=== PATIENT | male | born 1955 | race Caucasian/White ===

== ENCOUNTER → 2020-11-03 13:51 | Outpatient (CLI) | payer BC, SELFPAY ==
[2020-10-21 15:59] VITALS: BMI 29.2
--- NOTE | 2020-11-03 13:53 | ECHOD_ITS ---
Reason For Study: CHF Procedure This was a 2D Doppler, Color Flow transthoracic echocardiogram. The exam was of adequate technical quality. Exam performed in department. Left Ventricle Normal LV size. Left ventricular systolic function is lower limits of normal. The estimated ejection fraction is 50 %. Diastolic function is indeterminate. No regional wall motion abnormalities noted. Right Ventricle Normal RV size. Normal systolic function. Atria The left atrium is mildly enlarged. Normal right atrium. No doppler evidence for ASD. Mitral Valve There is mild mitral annular calcification. Extension the mitral annular calcification on the base of the posterior mitral valve leaflet. Mild focal mitral valve calcification of the anterior leaflet. Trivial mitral valve insufficiency. Tricuspid Valve Normal tricuspid valve. Trivial tricuspid valve insufficiency. Unable to estimate RV systolic pressure due to insufficient tricuspid regurgitant envelope. Aortic Valve Trisinus/trileaflet aortic valve. Mild diffuse aortic valve thickening. Severe diffuse aortic valve calcification. Severe aortic stenosis. Mild (1+) eccentric aortic valve insufficiency. Pulmonic Valve The pulmonic valve is not well visualized. Trivial pulmonic valve insufficiency. Great Vessels Normal sized aortic root. Pericardium/Pleural No pericardial effusion. Epicardial fat. MMode/2D Measurements & Calculations LVIDd: 5.6 cm IVSd: 1.2 cm LVOT diam: 2.1 cm LVIDs: 4.2 cm LVPWd: 1.3 cm LVOT area: 3.5 cm2 RVDd: 3.6 cm FS: 25.8 % Ao root diam: 3.4 cm LAV(MOD-bp): 52.9 ml LVAd ap4: 37.6 cm2 ACS: 0.45 cm LAV(MOD-bp) Indexed: 24.8 ml/m2 LVLd ap4: 8.1 cm LAV(MOD-sp2): 42.5 ml EDV(MOD-sp4): 147.2 ml LAV(MOD-sp4): 62.9 ml EDV(sp4-el): 148.8 ml LVAs ap4: 24.9 cm2 LVLs ap4: 7.2 cm ESV(MOD-sp4): 71.9 ml ESV(sp4-el): 72.7 ml EF(MOD-sp4): 51.1 % EF(sp4-el): 51.2 % LVAd ap2: 30.2 cm2 SV(MOD-sp4): 75.3 ml SV(MOD-sp2): 52.6 ml LVLd ap2: 8.1 cm EDV(MOD-sp2): 92.5 ml EDV(sp2-el): 95.7 ml LVAs ap2: 18.4 cm2 LVLs ap2: 7.2 cm ESV(MOD-sp2): 39.8 ml ESV(sp2-el): 39.7 ml EF(MOD-sp2): 56.9 % SV(sp4-el): 76.1 ml LA dimension(2D): 4.6 cm LA A4 area: 19.5 cm2 RA A4 area: 16.3 cm2 Doppler Measurements & Calculations MV E max lion: 70.6 cm/sec Lat Peak E' Lion: 5.4 cm/sec Med Peak E' Lion: 3.7 cm/sec MV A max lion: 105.7 cm/sec E/E' lat: 13.0 E/E' med: 18.9 MV E/A: 0.67 Ao V2 max: 408.8 cm/sec AI max lion: 476.0 cm/sec LV V1 max: 111.4 cm/sec Ao max P.9 mmHg AI max P.7 mmHg LV V1 max P.0 mmHg Ao V2 mean: 306.9 cm/sec AI dec slope: 284.5 cm/sec2 LV V1 mean P.0 mmHg Ao mean P.3 mmHg AI P1/2t: 490.2 msec LV V1 mean: 83.3 cm/sec Ao V2 VTI: 93.1 cm LV V1 VTI: 25.5 cm CRIS(I,D): 0.96 cm2 CRIS(V,D): 0.95 cm2 SV(LVOT): 89.0 ml PA V2 max: 109.8 cm/sec PI end-d lion: 107.9 cm/sec ECHO/Echo Complete Interpretation Summary Left ventricular systolic function is lower limits of normal. The estimated ejection fraction is 50 %. The left atrium is mildly enlarged. There is mild mitral annular calcification. Extension the mitral annular calcification on the base of the posterior mitral valve leaflet. Mild focal mitral valve calcification of the anterior leaflet. Trivial mitral valve insufficiency. Trivial tricuspid valve insufficiency. Severe aortic stenosis. Mild (1+) eccentric aortic valve insufficiency. Trivial pulmonic valve insufficiency. Epicardial fat. Unable to estimate RV systolic pressure due to insufficient tricuspid regurgita nt envelope. Diastolic function is indeterminate. Ordering Physician: Jamin Pradhan Referring Physician: Trent Chandra Performed By: Loida Jones, JIGNESH, RVT
== END ==
PROVIDERS: PCP Family Medicine; Referring Provider Internal Medicine Cardiovascular Disease; Visit Provider Internal Medicine Cardiovascular Disease
DX: I35.0 Nonrheumatic aortic (valve) stenosis (principal); I11.0 Hypertensive heart disease with heart failure; I50.22 Chronic systolic (congestive) heart failure; I25.10 Atherosclerotic heart disease of native coronary artery without angina pectoris; I42.8 Other cardiomyopathies
CPT/HCPCS: 93306

== ENCOUNTER 2021-06-25 07:15 | Outpatient (CLI) | payer OTHER, SELFPAY ==
[2021-06-25 08:12] LABS: AST(SGOT) 19 U/L (15-37); Alanine Aminotransfer ALT/SGPT 32 U/L (16-61); Albumin, Serum 3.9 g/dL (3.2-5.0); Alkaline Phosphatase 56 U/L (45-117); Bilirubin, Direct 0.09 mg/dL (0.00-0.30); Cholesterol 156 mg/dL (200); Globulin 3.2 g/dL (2.2-4.2); High Density Lipoprotein 39 mg/dL; Protein, Total 7.1 g/dL (6.4-8.2); Triglycerides 104 mg/dL; Very Low Density Lipoprotein 21 mg/dL (5-40)
== END 2021-06-25 23:59 | disposition home or self-care (01) ==
PROVIDERS: PCP Family Medicine; Referring Provider Nurse Practitioner Family; Visit Provider Nurse Practitioner Family
DX: I25.10 Atherosclerotic heart disease of native coronary artery without angina pectoris (principal)
CPT/HCPCS: 36415; 80061; 80076

== ENCOUNTER → 2022-02-11 | Outpatient (CLI) | payer BC, SELFPAY ==
[2022-02-11 08:38] LABS: AST(SGOT) 22 U/L (15-37); Alanine Aminotransfer ALT/SGPT 40 U/L (16-61); Alkaline Phosphatase 63 U/L (45-117); Anion Gap 4 (5-15); BUN 21 mg/dL (7-18); BUN/Creat Ratio 16.4 RATIO (10-20); Bilirubin, Direct 0.15 mg/dL (0.00-0.30); Calcium,Total 9.5 mg/dL (8.5-10.1); Chloride 106 mmol/L (98-107); Cholesterol 158 mg/dL (200); Creatinine, Serum 1.28 mg/dL (0.70-1.30); EST Glomerular Filtration Rate 60 mL/min (>60); Est Glom Filt Rate - Afr Amer 73 mL/min (>60); Globulin 3.6 g/dL (2.2-4.2); Glucose 100 mg/dL (74-106); High Density Lipoprotein 38 mg/dL; Potassium 4.6 mmol/L (3.5-5.1); Protein, Total 7.6 g/dL (6.4-8.2); Sodium Level 140 mmol/L (136-145); Triglycerides 167 mg/dL; Very Low Density Lipoprotein 33 mg/dL (5-40)
== END | disposition home or self-care (01) ==
LOC: LAB 07:01
PROVIDERS: PCP Family Medicine; Referring Provider Nurse Practitioner Family; Visit Provider Nurse Practitioner Family
DX: I11.0 Hypertensive heart disease with heart failure (principal); I50.22 Chronic systolic (congestive) heart failure
CPT/HCPCS: 36415; 80048; 80061; 80076

== ENCOUNTER → 2023-09-07 | Outpatient (CLI) | payer OTHER, SELFPAY ==
[2023-09-07 07:38] LABS: ALB/GLOB Ratio 1.3 RATIO (0.9-2.4); AST(SGOT) 42 U/L (15-37); Alanine Aminotransfer ALT/SGPT 54 U/L (16-61); Albumin, Serum 4.1 g/dL (3.2-5.0); Alkaline Phosphatase 51 U/L (45-117); Anion Gap 5 (5-15); BUN 31 mg/dL (7-18); BUN/Creat Ratio 23.7 RATIO (10-20); Calcium,Total 9.6 mg/dL (8.5-10.1); Chloride 107 mmol/L (98-107); Cholesterol 174 mg/dL (200); Creatinine, Serum 1.31 mg/dL (0.70-1.30); EST Glomerular Filtration Rate 58 mL/min (>60); Est Glom Filt Rate - Afr Amer 70 mL/min (>60); Globulin 3.2 g/dL (2.2-4.2); Glucose 94 mg/dL (74-106); High Density Lipoprotein 40 mg/dL; Potassium 4.2 mmol/L (3.5-5.1); Protein, Total 7.3 g/dL (6.4-8.2); Sodium Level 138 mmol/L (136-145); Triglycerides 90 mg/dL; Very Low Density Lipoprotein 18 mg/dL (5-40)
== END | disposition home or self-care (01) ==
PROVIDERS: PCP Family Medicine; Referring Provider Nurse Practitioner Family; Visit Provider Nurse Practitioner Family
DX: E78.5 Hyperlipidemia, unspecified (principal); I50.22 Chronic systolic (congestive) heart failure; I42.8 Other cardiomyopathies; I25.10 Atherosclerotic heart disease of native coronary artery without angina pectoris
CPT/HCPCS: 36415; 80053; 80061

== ENCOUNTER → 2023-12-01 | Outpatient (CLI) | payer OTHER, SELFPAY ==
[2023-12-01 08:59] LABS: AST(SGOT) 21 U/L (15-37); Alanine Aminotransfer ALT/SGPT 30 U/L (16-61); Alkaline Phosphatase 49 U/L (45-117); Bilirubin, Direct 0.16 mg/dL (0.00-0.30); Cholesterol 294 mg/dL (200); Globulin 3.2 g/dL (2.2-4.2); High Density Lipoprotein 51 mg/dL; Protein, Total 7.2 g/dL (6.4-8.2); Triglycerides 100 mg/dL; Very Low Density Lipoprotein 20 mg/dL (5-40)
== END | disposition home or self-care (01) ==
LOC: LAB 07:50
PROVIDERS: PCP Family Medicine; Referring Provider Nurse Practitioner Family; Visit Provider Nurse Practitioner Family
DX: I10 Essential (primary) hypertension (principal); E78.5 Hyperlipidemia, unspecified; I25.10 Atherosclerotic heart disease of native coronary artery without angina pectoris
CPT/HCPCS: 36415; 80061; 80076

== ENCOUNTER → 2024-03-15 | Outpatient (CLI) | payer OTHER, SELFPAY ==
[2024-03-15 08:37] LABS: AST(SGOT) 24 U/L (15-37); Alanine Aminotransfer ALT/SGPT 31 U/L (16-61); Albumin, Serum 3.9 g/dL (3.2-5.0); Alkaline Phosphatase 59 U/L (45-117); Bilirubin, Direct 0.08 mg/dL (0.00-0.30); Cholesterol 257 mg/dL (200); Globulin 3.2 g/dL (2.2-4.2); High Density Lipoprotein 50 mg/dL; Protein, Total 7.1 g/dL (6.4-8.2); Triglycerides 178 mg/dL; Very Low Density Lipoprotein 36 mg/dL (5-40)
== END | disposition home or self-care (01) ==
PROVIDERS: PCP Family Medicine; Referring Provider Nurse Practitioner Family; Visit Provider Nurse Practitioner Family
DX: E78.5 Hyperlipidemia, unspecified (principal)
CPT/HCPCS: 36415; 80061; 80076

== ENCOUNTER → 2024-05-05 | Outpatient (CLI) | payer OTHER, SELFPAY ==
--- NOTE | 2024-05-05 07:43 | ECHOD_ITS ---
Reason For Study Reason For Study: TAVR Evaluation Procedure This was a 2D Doppler, Color Flow transthoracic echocardiogram. Exam performed in department. Left Ventricle Normal size and thickness. Borderline LV systolic function. Estimated LVEF 45- 50%. Diastolic function indeterminate. Right Ventricle Normal right ventricle. Atria The left atrium is severely enlarged. The right atrium is mildly enlarged. Mitral Valve Moderate mitral valve annular calcification. Mild mitral valve regurgitation. Tricuspid Valve Trivial tricuspid valve insufficiency. Unable to estimate RV systolic pressure due to insufficient tricuspid regurgitant envelope. Aortic Valve Bioprosthetic aortic valve functioning normally. Mean peak gradient 6.6 mmHg. Pulmonic Valve Mild (1+) pulmonic valve insufficiency. Great Vessels Normal aortic root. Pericardium/Pleural No pericardial effusion. MMode/2D Measurements & Calculations LVIDd: 5.6 cm IVSd: 0.91 cm LVOT diam: 2.1 cm LVIDs: 4.1 cm LVPWd: 0.97 cm LVOT area: 3.5 cm2 RVDd: 4.1 cm FS: 26.8 % Ao root diam: 3.7 cm LAV(MOD-bp): 52.3 ml LVAd ap4: 36.2 cm2 LA dimension: 5.7 cm LAV(MOD-bp) Indexed: 24.9 ml/m2 LVLd ap4: 8.1 cm LAV(MOD-sp2): 49.6 ml EDV(MOD-sp4): 136.9 ml LAV(MOD-sp4): 51.3 ml EDV(sp4-el): 137.9 ml LVAs ap4: 25.1 cm2 LVLs ap4: 7.2 cm ESV(MOD-sp4): 76.0 ml ESV(sp4-el): 74.6 ml EF(MOD-sp4): 44.5 % EF(sp4-el): 45.9 % SV(MOD-sp4): 60.9 ml SV(sp4-el): 63.2 ml LA A4 area: 17.2 cm2 SI(MOD-sp4): 29.0 ml/m2 LA dimension(2D): 4.7 cm RA A4 area: 16.7 cm2 TAPSE: 2.5 cm Time Measurements MV dec time: 0.19 sec Doppler Measurements & Calculations MV E max lion: 79.5 cm/sec Lat Peak E' Lion: 7.3 cm/sec Med Peak E' Lion: 6.1 cm/sec MV A max lion: 92.8 cm/sec E/E' lat: 10.9 E/E' med: 13.0 MV E/A: 0.86 MV V2 max: 112.1 cm/sec MV P1/2t max lion: 101.4 cm/sec Ao V2 max: 171.9 cm/sec MV max P.0 mmHg MV P1/2t: 76.4 msec Ao max P.8 mmHg MV V2 mean: 66.9 cm/sec Ao V2 mean: 119.3 cm/sec MV mean P.1 mmHg MV dec slope: 389.0 cm/sec2 Ao mean P.6 mmHg MV V2 VTI: 34.0 cm MVA(P1/2t): 2.9 cm2 Ao V2 VTI: 39.2 cm AV (velocity ratio): 0.70 MVA(VTI): 2.9 cm2 CRIS(I,D): 2.5 cm2 CRIS(V,D): 2.5 cm2 LV V1 max: 120.0 cm/sec SV(LVOT): 97.2 ml PA V2 max: 105.7 cm/sec LV V1 max P.8 mmHg LV V1 mean P.6 mmHg LV V1 mean: 90.0 cm/sec LV V1 VTI: 27.5 cm PI dec slope: 145.5 cm/sec2 ECHO/Echo Complete Interpretation Summary Borderline LV systolic function. Estimated LVEF 45-50%. Diastolic function inde terminate. The left atrium is severely enlarged. The right atrium is mildly enlarged. Moderate mitral valve annular calcification. Mild mitral valve regurgitation. Bioprosthetic aortic valve functioning normally. Mean peak gradient 6.6 mmHg. Mild (1+) pulmonic valve insufficiency. Ordering Physician: Kp Jones Referring Physician: Trent Chandra Performed By: Kushal Valdez RCS
== END | disposition home or self-care (01) ==
LOC: CVS 07:43
PROVIDERS: PCP Family Medicine; Referring Provider Nurse Practitioner Family; Visit Provider Nurse Practitioner Family
DX: I35.0 Nonrheumatic aortic (valve) stenosis (principal); I10 Essential (primary) hypertension
CPT/HCPCS: 93306